=== PATIENT | male | born 1945 | race Caucasian/White ===

== ENCOUNTER 2018-03-15 08:42 | Outpatient (CLI) | payer MEDICARE, BC ==
--- NOTE | 2018-03-15 14:19 | RAD ---
CHEST TWO VIEWS: History: Pre op. Comparison: 03-30-17 FINDINGS: Loop recording device is present. No focal airspace consolidation, pneumothorax, or effusion. There a re some calcified granulomas in the lung. No acute osseous abnormality. IMPRESSION: No acute intrathoracic abnormality. POS: [facility]
[2018-03-15 14:26] LABS: #Eosinphils 0.2 thou/uL (0.0-0.7); #Lymphocytes 1.7 thou/uL (1.20-3.40); #Monocytes 0.6 thou/uL (0.11-0.59); #Neutrophils 5.4 thou/uL (1.40-6.50); %Basophils 0.3 % (0.0-1.0); %Eosinophils 2.8 % (0.0-10.0); %Lymphocytes 21.9 % (21.0-51.0); %Monocytes 7.4 % (0.0-10.0); %Neutrophils 67.6 % (42.0-75.0); Hemoglobin 13.2 g/dL (14.0-18.0); Mean Corpuscular HGB CONC 31.8 g/dL (32.0-36.0); Mean Corpuscular Hemoglobin 27.5 pg (27.0-31.0); Mean Corpuscular Volume 86.5 fl (80.0-94.0); Platelet Count 338 thou/uL (130-400); RBC Distribution Width 14.1 % (11.5-14.5); Red Blood Cell (RBC) Count 4.81 mill/uL (4.70-6.10); White Blood Cell (WBC) Count 7.9 thou/uL (4.8-10.8)
[2018-03-15 14:33] LABS: INR-International Normal Ratio 1.1; Prothrombin Time 14.3 SEC (12.0-14.7)
[2018-03-15 14:36] LABS: Bilirubin Negative (Negative); Blood, Urine Negative (Negative); Clarity CLEAR (Clear); Glucose, Urine (Dipstick) Negative (Negative); Leukocyte Negative (Negative); Nitrite Negative (Negative); Protein, Urine (Dipstick) Negative (Neg-Trace); Specific Gravity, Urine 1.012 (1.002-1.036); Urobilinogen 0.2 mg/dL (0.2-1.0); pH, Urine 5.5 (5.0-9.0)
[2018-03-15 14:43] LABS: Bacteria/HPF None Seen HPF (None Seen); Hyaline Casts/LPF 0-3 HYALINE CAST LPF (0-3 Hyaline); Pathc Cast-AUWi Flag 0.14 (0-2.49); RBC/HPF 0-3 HPF (0-3); Squamous Epithelial None Seen HPF (0-3); WBC/HPF 0-3 HPF (0-3)
[2018-03-15 14:49] LABS: Anion Gap 14 mmol/L (10-20); BUN (Urea Nitrogen) 8 mg/dL (8.4-25.7); Calc. Creatinine Clearance 0 mL/min (70-130); Calcium 9.5 mg/dL (7.8-10.44); Carbon Dioxide 28 mmol/L (23-31); Chloride 101 mmol/L (98-107); Estimated GFR-MDRD 69; Glucose 88 mg/dL (80-115); Potassium 4.5 mmol/L (3.5-5.1); Sodium 138 mmol/L (136-145)
== END 2018-03-15 08:43 | disposition home or self-care (01) ==
LOC: LABBT 08:42
PROVIDERS: ATTEND Orthopaedic Surgery
DX: Z01.818 Encounter for other preprocedural examination (principal); M17.12 Unilateral primary osteoarthritis, left knee
CPT/HCPCS: 71046; 80048; 81001; 85025; 85610; 86850; 86900; 86901; 87081

== ENCOUNTER 2018-03-22 06:41 | Day surgery (SDC) | payer MEDICARE, BC ==
[2018-03-15 08:57] VITALS: BMI 29.1
[2018-03-22] MEDS ORDERED: Vancomycin HCl 1.5 GM in Sodium Chloride 0.9% 250 ML 300 ML IVPB SCH (07:15)
[2018-03-22] MEDS ORDERED: CEFAZOLIN/Water 2 GM/20 ML SYRINGE ONE (07:28)
[2018-03-22] MEDS ORDERED: Fentanyl 100 MCG/2 ML VIAL ONE ×4 (07:42→11:28)
[2018-03-22] MEDS ORDERED: Midazolam HCl 2 mg/2 ml Vial ONE ×2 (07:42→09:07)
[2018-03-22] MEDS ORDERED: Ondansetron HCl/PF 4 MG/2 ML Vial IVP PRN ×3 (08:46→10:11)
[2018-03-22] MEDS ORDERED: diphenhydrAMINE 25 MG CAP PO PRN (08:46)
[2018-03-22] MEDS ORDERED: Promethazine HCl 25 MG/ML VIAL IM PRN ×3 (08:46→10:11)
[2018-03-22] MEDS ORDERED: Zolpidem Tartrate 5 MG TAB PO PRN ×2 (08:46→08:48)
[2018-03-22] MEDS ORDERED: Acetaminophen 325 MG TAB PO PRN (08:46)
[2018-03-22] MEDS ORDERED: traMADol HCl 50 MG TAB PO PRN ×3 (08:46→08:48)
[2018-03-22] MEDS ORDERED: HYDROcodone/Acetaminophen 10/325 mg Tablet PO PRN ×4 (08:46→08:48)
[2018-03-22] MEDS ORDERED: [UNRECOGNIZED DRUG - OTHER] PO PRN (08:47)
[2018-03-22] MEDS ORDERED: Bupivacaine 0.5% 50 ML in Sodium Chloride 0.9% 50 ML NERVE BLCK SCH (08:48)
[2018-03-22] MEDS ORDERED: Fentanyl 100 MCG/2 ML VIAL IV PRN (08:49)
[2018-03-22] MEDS ORDERED: Non-Formulary Item 1 EACH (Buprenorphine [Butrans] 1 PATCH) TD SCH (09:00)
[2018-03-22] MEDS ORDERED: Tranexamic Acid 1,000 MG in Sodium Chloride 0.9% 100 ML IVPB SCH (09:00)
[2018-03-22] MEDS ORDERED: Promethazine HCl 25 MG/ML VIAL SLOW IVP PRN (10:11)
[2018-03-22] MEDS ORDERED: Ketorolac Tromethamine 30 MG/ML VIAL ONE (11:38)
--- NOTE | 2018-03-22 11:49 | OP ---
PREOPERATIVE DIAGNOSIS: Degenerative joint disease, left knee. POSTOPERATIVE DIAGNOSIS: Degenerative joint disease, left knee. SURGEON: Shane Mays M.D. DETAIL MAKER AND FITTER: Wilmar Lujan PA-C. BLOOD LOSS: Minimal. SPECIMENS: None. DRAINS: None. COMPLICATIONS: None. TOURNIQUET TIME: 49 minutes. PROCEDURE: Left total knee arthroplasty. IMPLANTS USED: Shelly Triathlon 6 femur, 5 tibia, 9 mm CSX3 polyethylene, and A35 patella. PROCEDURE IN DETAIL: After informed consent was obtained in the preoperative holding area. The bhavna ent was taken to the operative suite where general anesthesia was induced. Once adequate level of ge neral anesthesia was obtained, the patient was positioned and a well-padded tourniquet was placed sonja und the ?? proximal thigh. The ?? lower extremity was then prepped and draped in the usual sterile f ashion. Prior to exsanguination, a time out was called and all members of the surgical team agreed u portia site, surgeon, and patient. The extremity was then exsanguinated and the tourniquet was raised. A midline longitudinal incision was then made directly over the patella extending two fingerbreadths above the superior pole of the patella and two fingerbreadths inferior to the inferior patellar pole of the patella. Deeper subcutaneous layers were dissected sharply and local bleeding was controlled with Bovie electrocautery. A quad tendon longitudinal split was then made sharply and a median para patellar arthrotomy was carried out both sharp and with Bovie electrocautery, carried down to one fin gerbreadth medial to the tibial tubercle. The knee was then placed into flexion and the patella was everted nicely, and a copious fat pad ectomy was performed allowing for greater exposure of the tibia . The computer-assisted distal femoral fiducial was then placed and pinned firmly, and the distal fe moral cutting guide was pinned firmly into place. The oscillating saw was then used to remove the ap propriate amount of bone. The 4-in-1 cutting block was then placed on the distal femur and the oscil lating saw was used to remove the appropriate amount of bone off of the anterior, posterior, and yasmine master cuts. After completion of bone cuts, the anterior cruciate ligament was resected sharply and the posterior cruciate ligament retractor was placed and the tibia was subluxed for better exposure. Pa rtial meniscectomies were carried out, and the tibial computer-assisted fiducial was pinned, and the cutting guide was placed. Oscillating saw was then used to remove the bone with Hohmann retractors u sed to take care and protect the collateral ligaments. After the tibial resection was performed, a l aminar sewer and cutter finger buff material was placed in between the freshened bone cuts. The knee placed at 90 degrees and fur ther bilateral meniscectomies were carried out, and the curved osteotome and curettage was used to re move any excess bone spurs in the posterior compartment. The trial femoral component, tibial basepla te were placed with the appropriate polyethylene trial insert with an appropriate polyethylene spacer and patellar button. The knee was taken through full range of motion with flexion and extension fro m 0-90 degrees and patellar broach squarely in the trochlea without any squinting or subluxation note d. The knee was also stable to varus and valgus stressing at 0, 15, 45, and 90 degrees of flexion. The drawer was negative. All trial components were then removed and the keel punch was used to provid e the appropriate defect in the tibia with a mallet. The freshened bone cuts were copiously irrigate d with pulsatile lavage of about 1-1/2 liters to remove all excess debris. The freshened bone cuts w ere then dried and with suction and lap sponge. The knee was placed in flexion and retractors were p laced to provide access to all bone cuts. Tobramycin impregnated methyl methacrylate cement was then placed on the freshened bone cuts and implants which were malleted firmly into place. Curettage and [place] elevators were used to remove any excess bone cement. The knee was placed into full extension and the patellar button was placed under compression, and the cement was allowed to cure. Once comp leted, the components were again taken through full range of motion and copious irrigation of the kne e was carried out with another liter of normal saline. All components were inspected fully with full range of motion and varus and valgus stressing. There was no laxity noted and full extension was obs erved clinically. Primary closure was accomplished with #2 interrupted Vicryl stitch of the arthroto my defect. This was oversewn with a #2 running Quill barbed stitch. The gravitational platelet syst em was then injected into the arthrotomy prior to closure. The subcutaneous layer was then closed wi th a running 0 barbed Monocryl stitch and skin closure accomplished with a running subcuticular 3-0 M onocryl barbed Quill stitch and augmented with cement on the skin. Tourniquet was lowered. Good spo ntaneous return of distal pulses was noted clinically and a sterile dressing was applied to the incis ion. The procedure was terminated without any complications. The patient was awakened in the operat emmanuel suite and the tourniquet was removed, and the patient was taken to the recovery room in stable co ndition.
[2018-03-22] MEDS ORDERED: Senokot 8.6 MG TAB PO PRN (12:37)
[2018-03-22] MEDS ORDERED: Chloraseptic Spray 180 ml Bottle PO PRN (12:37)
[2018-03-22] MEDS ORDERED: Milk Of Magnesia 30 ML UDCUP PO PRN (12:37)
[2018-03-22] MEDS ORDERED: Diabetic Tussin 200 MG/10 ML UDCUP PO PRN (12:37)
[2018-03-22] MEDS ORDERED: Loperamide HCl 2 MG CAP PO PRN (12:37)
[2018-03-22] MEDS ORDERED: Ondansetron ODT 4 MG TAB PO PRN (12:37)
[2018-03-22] MEDS ORDERED: hydrALAZINE 20 MG/ML VIAL SLOW IVP PRN (12:37)
[2018-03-22] MEDS ORDERED: Artificial Tears 18 DROP/0.9 ML EA EYE PRN (12:37)
[2018-03-22] MEDS ORDERED: Mag-Al 1200 mg/1200 mg/30 ML UDCUP PO PRN (12:37)
[2018-03-22] MEDS ORDERED: Eucerin (Mineral Oil/Petrolatum,White) 30 gm Jar TOP PRN (12:37)
--- NOTE | 2018-03-22 12:37 | RAD ---
LEFT KNEE TWO VIEWS: HISTORY: Total knee, postop. COMPARISON: None. FINDINGS: Satisfactory appearance of left post total knee arthroplasty and patellar resurfacing. Respective po stoperative gas and edema. IMPRESSION: Satisfactory postoperative appearance. POS: [facility]
[2018-03-22] MEDS: Levothyroxine Sodium 75 MCG TAB PO SCH (13:20)
[2018-03-22] MEDS: Ferrous Gluconate 324 MG TAB PO SCH ×2 (13:20→21:20)
[2018-03-22] MEDS: Multivitamin W/ Minerals 1 TAB PO SCH (13:21)
[2018-03-22] MEDS: Sodium Chloride 0.9% 1,000 ML IV SCH ×2 (13:21→19:33)
[2018-03-22] MEDS: Ketorolac Tromethamine 30 MG/ML VIAL IVP SCH ×3 (13:21→23:59)
[2018-03-22] MEDS: Senokot S 8.6-50 MG TAB PO SCH ×2 (13:21→21:20)
--- NOTE | 2018-03-22 13:34 | PDOC.PN ---
- Subjective Encounter Start Date: 03/22/18 Encounter Start Time: 13:30 -: old records requested/rev Patient seen and examined. No new complaints. No overnight events - Objective Resuscitation Status: Resuscitation Status FULL:Full Resuscitation MAR Reviewed: Yes Vital Signs & Weight: Weight Weight 215 lb Radiology Reviewed by me: Yes (knee xray) EKG Reviewed by me: Yes (nsr) Phys Exam - Physical Examination Constitutional: NAD HEENT: PERRLA, moist MMs, sclera anicteric Neck: no JVD, supple Respiratory: no wheezing, no rales, no rhonchi Cardiovascular: RRR, no significant murmur, no rub Gastrointestinal: soft, non-tender, no distention, positive bowel sounds Musculoskeletal: no edema, pulses present left knee with dressing, nerve block in place Neurological: non-focal, normal sensation, moves all 4 limbs Lymphatic: no nodes Psychiatric: normal affect, A&O x 3 Skin: no rash, normal turgor, cap refill <2 seconds Dx/Plan (1) Status post total left knee replacement Code(s): Z96.652 - PRESENCE OF LEFT ARTIFICIAL KNEE JOINT Status: Acute (2) Paroxysmal atrial fibrillation Code(s): I48.0 - PAROXYSMAL ATRIAL FIBRILLATION Status: Chronic (3) Thoracic ascending aortic aneurysm Status: Chronic (4) Osteoarthritis Code(s): M19.90 - UNSPECIFIED OSTEOARTHRITIS, UNSPECIFIED SITE Status: Chronic (5) Hiatal hernia Code(s): K44.9 - DIAPHRAGMATIC HERNIA WITHOUT OBSTRUCTION OR GANGRENE Status: Chronic (6) Asbestos exposure Code(s): Z77.090 - CONTACT WITH AND (SUSPECTED) EXPOSURE TO ASBESTOS Status: Chronic (7) BPH (benign prostatic hyperplasia) Code(s): N40.0 - BENIGN PROSTATIC HYPERPLASIA WITHOUT LOWER URINRY TRACT SYMP Status: Chronic (8) Chronic anticoagulation Code(s): Z79.01 - PRISON (CURRENT) USE OF ANTICOAGULANTS Status: Chronic (9) HTN (hypertension) Code(s): I10 - ESSENTIAL (PRIMARY) HYPERTENSION Status: Chronic (10) Hypothyroidism Code(s): E03.9 - HYPOTHYROIDISM, UNSPECIFIED Status: Chronic (11) Pulmonary nodules Status: Chronic - Plan cont current plan of care, plan discussed w/ family, PT/OT, DVT proph w/SCDs * code status discussed, pt is full code and his is MPOA * continue lovenox for DVT prophylaxis as per protocol * continue pepcid for GI prophylaxis * nerve bloc as per anesthesia * PT/OT as per [facility] protocol treatment * Home medication reconciled, [place] on discharge * medication reviewed as below * symptomatic treatment. * discussed plan with * old labs and record reviewed Review of Systems - Review of Systems Constitutional: negative: fever, chills, sweats, weakness, malaise, other Eyes: negative: Pain, Vision Change, Conjunctivae Inflammation, Eyelid Inflammation, Redness, Other ENT: negative: Ear Pain, Ear Discharge, Nose Pain, Nose Discharge, Nose Congestion, Mouth Pain, Mouth Swelling, Throat Pain, Throat Swelling, Other Respiratory: negative: Cough, Dry, Shortness of Breath, Hemoptysis, SOB with Excertion, Pleuritic Pain, Sputum, Wheezing Cardiovascular: negative: chest pain, palpitations, orthopnea, paroxysmal nocturnal dyspnea, edema, light headedness, other Gastrointestinal: negative: Nausea, Vomiting, Abdominal Pain, Diarrhea, Constipation, Melena, Hematochezia, Other Genitourinary: negative: Dysuria, Frequency, Incontinence, Hematuria, Retention , Other Musculoskeletal: negative: Neck Pain, Shoulder Pain, Arm Pain, Back Pain, Hand Pain, Leg Pain, Foot Pain, Other Skin: negative: Rash, Lesions, Anthony, Bruising, Other - Medications/Allergies Allergies/Adverse Reactions: Allergies Allergy/AdvReac Type Severity Reaction Status Date / Time No Known Allergies Allergy Verified 03/15/18 08:57 Medications: Current Medications Acetaminophen (Tylenol) 650 mg PO Q4H PRN PRN Reason: SOL/ T > 101F; Mild Pain (1-3) Hydrocodone Bitart/Acetaminophen ([place] 10/325) 1 tab PO Q4H PRN PRN Reason: Pain (1-3) Hydrocodone Bitart/Acetaminophen ([place] 10/325) 2 tab PO Q4H PRN PRN Reason: PAIN (4-6) Al Hydroxide/Mg Hydroxide (Maalox) 15 ml PO Q4H PRN PRN Reason: Heartburn or Indigestion Artificial Tears (Tears Naturale) 0 drop EA EYE PRN PRN PRN Reason: Dry Eyes Cefazolin Sodium (Ancef) 2 gm SLOW IVP Q8H [facility] Stop: 03/23/18 00:01 Cholecalciferol (Vitamin D3) 2,000 units PO DAILY [facility] Last Admin: 03/22/18 13:20 Dose: Not Given Diphenhydramine HCl (Benadryl) 25 mg PO Q6H PRN PRN Reason: Itching Duloxetine HCl (Cymbalta) 60 mg PO HS [facility] Enoxaparin Sodium (Lovenox) 40 mg SC 0900 [facility] Famotidine (Pepcid) 20 mg PO BID [facility] Fentanyl (Sublimaze) 50 mcg IV Q1H PRN PRN Reason: BREAKTHROUGH PAIN Last Admin: 03/22/18 13:07 Dose: 50 mcg Ferrous Gluconate (Fergon) 324 mg PO BID [facility] Last Admin: 03/22/18 13:20 Dose: Not Given Guaifenesin (Robitussin Sf) 200 mg PO Q4H PRN PRN Reason: Cough Hydralazine HCl (Apresoline) 10 mg SLOW IVP Q4H PRN PRN Reason: Systolic BP > 180 Bupivacaine HCl 50 ml/ Sodium (Chloride) 100 mls @ 0 mls/hr NERVE BLCK INF [facility] PRN Reason: As Directed Sodium Chloride (Normal Saline 0.9%) 1,000 mls @ 100 mls/hr IV .Q10H [facility] Last Admin: 03/22/18 13:21 Dose: Not Given Tranexamic Acid 1,000 mg/ (Sodium Chloride) 110 mls @ 200 mls/hr IVPB ONE [facility] Stop: 03/22/18 21:00 Iron/Minerals/Multivitamins (Theragran M) 1 tab PO DAILY [facility] Last Admin: 03/22/18 13:21 Dose: Not Given Ketorolac Tromethamine (Toradol) 15 mg IVP Q6HR [facility] Stop: 03/24/18 06:01 Last Admin: 03/22/18 13:21 Dose: Not Given Levothyroxine Sodium (Synthroid) 75 mcg PO QAM [facility] Last Admin: 03/22/18 13:20 Dose: Not Given Loperamide HCl (Imodium) 2 mg PO PRN PRN PRN Reason: Diarrhea/Loose Stools Losartan Potassium (Cozaar) 100 mg PO HS [facility] Magnesium Hydroxide (Milk Of Magnesium) 30 ml PO DAILYPRN PRN PRN Reason: Constipation Mineral Oil/White Petrolatum (Eucerin Cream) 0 gm TOP BIDPRN PRN PRN Reason: Dry Skin Ondansetron HCl (Zofran) 4 mg IVP Q6H PRN PRN Reason: Nausea/Vomiting Ondansetron HCl (Zofran Odt) 4 mg PO Q6H PRN PRN Reason: Nausea/Vomiting [Butrans] 1 Patch 0 each TOP Q7D [facility] Phenol (Chloraseptic [place] 180 Ml Bot) 0 ml PO PRN PRN PRN Reason: Sore Throat Promethazine HCl (Phenergan) 12.5 mg IM Q4H PRN PRN Reason: Nausea Senna (Senokot) 2 tab PO HSPRN PRN PRN Reason: Constipation Senna/Docusate Sodium (Senokot S) 2 tab PO BID [facility] Last Admin: 03/22/18 13:21 Dose: Not Given Sodium Chloride (Flush - Normal Saline) 10 ml IVF PRN PRN PRN Reason: Saline Flush Tamsulosin HCl (Flomax) 0.4 mg PO QPM [facility] Tramadol HCl (Ultram) 50 mg PO Q6H PRN PRN Reason: Mild Pain (1-3) Tramadol HCl (Ultram) 100 mg PO Q6H PRN PRN Reason: Moderate Pain 4-6 Zolpidem Tartrate (Ambien) 5 mg PO HSPRN PRN PRN Reason: Insomnia History of Present Illnes - History of Present Illness Reason for Visit: elective admission for left knee replacement History of Present Illness: admitted for left TKR pt failed conservative treatment No chest pain or palpitation - Past Medical History Cardiac: AFIB, HTN, Hyperlipidemia Gastrointestinal: GERD Musculoskeletal: Osteoarthritis Renal/: Benign prostatic enlarg. Endocrine: Hypothyroidism Dermatology: Basal cell - Past Surgical History Past Surgical History: Appendectomy, Arthroscopy, Cholecystectomy, Total Hip Replacement (right), Total Knee Replacement (left) - Past Family History Family History: None - Past Social History Smoke: No Alcohol: Rare Drugs: None Lives: With Family Domestic Violence: Negative
[2018-03-22] MEDS ORDERED: Metoprolol Tartrate 25 MG TAB PO SCH ×2 (15:00→21:00)
[2018-03-22] MEDS: CEFAZOLIN/Water 2 GM/20 ML SYRINGE SLOW IVP SCH (15:32)
[2018-03-22] MEDS ORDERED: Ropivacaine 0.5% HCl/PF (150 MG/30 ML VIAL) ONE (15:34)
[2018-03-22] MEDS ORDERED: Ropivacaine 0.2% HCl/PF (40 MG/20 ML VIAL) ONE (15:34)
[2018-03-22] MEDS ORDERED: PHENYLEPHRINE-NS 100 MCG/ML 10 ML SYRINGE ONE (15:51)
[2018-03-22] MEDS ORDERED: PROPOFOL 200 MG/20 ML VIAL ONE (15:51)
[2018-03-22] MEDS ORDERED: Lidocaine 1% PF 5 ML VIAL ONE (15:51)
[2018-03-22] MEDS ORDERED: DULoxetine 60 MG CAP PO SCH (21:00)
[2018-03-22] MEDS ORDERED: Tamsulosin HCl 0.4 MG CAP PO SCH (21:00)
[2018-03-22] MEDS ORDERED: Losartan 25 MG TAB PO SCH (21:00)
[2018-03-22] MEDS: Famotidine 20 MG TAB PO SCH (21:19)
[2018-03-23] MEDS: CEFAZOLIN/Water 2 GM/20 ML SYRINGE SLOW IVP SCH
[2018-03-23] MEDS: Sodium Chloride 0.9% 1,000 ML IV SCH (04:18)
[2018-03-23 05:35] LABS: Hemoglobin 11.6 g/dL (14.0-18.0); Mean Corpuscular HGB CONC 34.1 g/dL (32.0-36.0); Mean Corpuscular Hemoglobin 28.9 pg (27.0-31.0); Mean Corpuscular Volume 84.8 fl (80.0-94.0); Platelet Count 266 thou/uL (130-400); RBC Distribution Width 13.9 % (11.5-14.5); Red Blood Cell (RBC) Count 3.99 mill/uL (4.70-6.10)
[2018-03-23] MEDS: Ketorolac Tromethamine 30 MG/ML VIAL IVP SCH ×2 (06:04→12:56)
[2018-03-23] MEDS: Multivitamin W/ Minerals 1 TAB PO SCH (08:53)
[2018-03-23] MEDS: Senokot S 8.6-50 MG TAB PO SCH (08:53)
[2018-03-23] MEDS: Ferrous Gluconate 324 MG TAB PO SCH (08:53)
[2018-03-23] MEDS: Famotidine 20 MG TAB PO SCH (08:53)
[2018-03-23] MEDS: Levothyroxine Sodium 75 MCG TAB PO SCH (08:53)
[2018-03-23] MEDS ORDERED: Enoxaparin Sodium 40 MG/0.4 ML SYRINGE SC SCH (09:00)
[2018-03-23] MEDS ORDERED: Metoprolol Tartrate 50 MG TAB PO SCH (09:00)
--- NOTE | 2018-03-23 10:39 | PDOC.PN ---
- Subjective Encounter Start Date: 03/23/18 Encounter Start Time: 08:30 -: old records requested/rev pt has tachycardia, he is asymptomatic, he has loop recorder inserted and he has monitor at home, he wants to follow up with his cardiology after discharge, no chest pain, no dizziness - Objective Resuscitation Status: Resuscitation Status FULL:Full Resuscitation MAR Reviewed: Yes Vital Signs & Weight: Vital Signs (12 hours) Temp Pulse Resp BP Pulse Ox 03/23/18 08:51 98.1 F 88 20 98 03/23/18 07:55 98.1 F 88 20 122/73 98 03/23/18 04:00 98.9 F 110 H 18 118/72 96 03/23/18 00:00 98.5 F 108 H 18 141/88 H 97 Weight Weight 215 lb I&O: 03/22/18 03/23/18 03/24/18 06:59 06:59 06:59 Intake Total 2947.0 Output Total 1300 Balance 1647.0 Result Diagrams: 03/23/18 04:29 Phys Exam - Physical Examination Constitutional: NAD HEENT: PERRLA, moist MMs, sclera anicteric Neck: no JVD, supple Respiratory: no wheezing, no rales, no rhonchi Cardiovascular: RRR, no significant murmur, no rub tachycardia Gastrointestinal: soft, non-tender, no distention, positive bowel sounds Musculoskeletal: no edema, pulses present left knee with dressing, nerve block Neurological: non-focal, normal sensation, moves all 4 limbs Psychiatric: normal affect, A&O x 3 Skin: no rash, normal turgor Dx/Plan (1) Status post total left knee replacement Code(s): Z96.652 - PRESENCE OF LEFT ARTIFICIAL KNEE JOINT Status: Acute (2) Paroxysmal atrial fibrillation Code(s): I48.0 - PAROXYSMAL ATRIAL FIBRILLATION Status: Chronic (3) Thoracic ascending aortic aneurysm Status: Chronic (4) Osteoarthritis Code(s): M19.90 - UNSPECIFIED OSTEOARTHRITIS, UNSPECIFIED SITE Status: Chronic (5) Hiatal hernia Code(s): K44.9 - DIAPHRAGMATIC HERNIA WITHOUT OBSTRUCTION OR GANGRENE Status: Chronic (6) Asbestos exposure Code(s): Z77.090 - CONTACT WITH AND (SUSPECTED) EXPOSURE TO ASBESTOS Status: Chronic (7) BPH (benign prostatic hyperplasia) Code(s): N40.0 - BENIGN PROSTATIC HYPERPLASIA WITHOUT LOWER URINRY TRACT SYMP Status: Chronic (8) Chronic anticoagulation Code(s): Z79.01 - ENVIRONMENTAL SERVICES PROJECT MANAGER (CURRENT) USE OF ANTICOAGULANTS Status: Chronic (9) HTN (hypertension) Code(s): I10 - ESSENTIAL (PRIMARY) HYPERTENSION Status: Chronic (10) Hypothyroidism Code(s): E03.9 - HYPOTHYROIDISM, UNSPECIFIED Status: Chronic (11) Pulmonary nodules Status: Chronic - Plan cont current plan of care, plan discussed w/ family, PT/OT, social media marketing specialist, DVT proph w/SCDs * continue aspirin for DVT prophylaxis as per protocol * continue protonix for GI prophylaxis * nerve bloc as per anesthesia * PT/OT as per [facility] protocol treatment * Home medication reconciled * medication reviewed as below * symptomatic treatment. * start elliquis on discharge * increase metoprolol 50 mg po bid Review of Systems - Review of Systems ENT: negative: Ear Pain, Ear Discharge, Nose Pain, Nose Discharge, Nose Congestion, Mouth Pain, Mouth Swelling, Throat Pain, Throat Swelling, Other Respiratory: negative: Cough, Dry, Shortness of Breath, Hemoptysis, SOB with Excertion, Pleuritic Pain, Sputum, Wheezing Cardiovascular: negative: chest pain, palpitations, orthopnea, paroxysmal nocturnal dyspnea, edema, light headedness, other Gastrointestinal: negative: Nausea, Vomiting, Abdominal Pain, Diarrhea, Constipation, Melena, Hematochezia, Other Genitourinary: negative: Dysuria, Frequency, Incontinence, Hematuria, Retention , Other Musculoskeletal: negative: Neck Pain, Shoulder Pain, Arm Pain, Back Pain, Hand Pain, Leg Pain, Foot Pain, Other Skin: negative: Rash, Lesions, Anthony, Bruising, Other - Medications/Allergies Allergies/Adverse Reactions: Allergies Allergy/AdvReac Type Severity Reaction Status Date / Time No Known Allergies Allergy Verified 03/15/18 08:57 Medications: Current Medications Acetaminophen (Tylenol) 650 mg PO Q4H PRN PRN Reason: SOL/ T > 101F; Mild Pain (1-3) Hydrocodone Bitart/Acetaminophen ([place] 10/325) 1 tab PO Q4H PRN PRN Reason: Pain (1-3) Hydrocodone Bitart/Acetaminophen ([place] 10/325) 2 tab PO Q4H PRN PRN Reason: PAIN (4-6) Al Hydroxide/Mg Hydroxide (Maalox) 15 ml PO Q4H PRN PRN Reason: Heartburn or Indigestion Artificial Tears (Tears Naturale) 0 drop EA EYE PRN PRN PRN Reason: Dry Eyes Cholecalciferol (Vitamin D3) 2,000 units PO DAILY [facility] Last Admin: 03/23/18 08:52 Dose: 2,000 units Diphenhydramine HCl (Benadryl) 25 mg PO Q6H PRN PRN Reason: Itching Duloxetine HCl (Cymbalta) 60 mg PO HS [facility] Last Admin: 03/22/18 21:20 Dose: 60 mg Enoxaparin Sodium (Lovenox) 40 mg SC 0900 [facility] Last Admin: 03/23/18 08:54 Dose: 40 mg Famotidine (Pepcid) 20 mg PO BID [facility] Last Admin: 03/23/18 08:53 Dose: 20 mg Fentanyl (Sublimaze) 50 mcg IV Q1H PRN PRN Reason: BREAKTHROUGH PAIN Last Admin: 03/22/18 13:07 Dose: 50 mcg Ferrous Gluconate (Fergon) 324 mg PO BID [facility] Last Admin: 03/23/18 08:53 Dose: 324 mg Guaifenesin (Robitussin Sf) 200 mg PO Q4H PRN PRN Reason: Cough Hydralazine HCl (Apresoline) 10 mg SLOW IVP Q4H PRN PRN Reason: Systolic BP > 180 Bupivacaine HCl 50 ml/ Sodium (Chloride) 100 mls @ 0 mls/hr NERVE BLCK INF [facility] PRN Reason: As Directed Last Admin: 03/23/18 00:06 Dose: 100 mls Iron/Minerals/Multivitamins (Theragran M) 1 tab PO DAILY [facility] Last Admin: 03/23/18 08:53 Dose: 1 tab Ketorolac Tromethamine (Toradol) 15 mg IVP Q6HR [facility] Stop: 03/24/18 06:01 Last Admin: 03/23/18 06:04 Dose: 15 mg Levothyroxine Sodium (Synthroid) 75 mcg PO QAM [facility] Last Admin: 03/23/18 08:53 Dose: 75 mcg Loperamide HCl (Imodium) 2 mg PO PRN PRN PRN Reason: Diarrhea/Loose Stools Losartan Potassium (Cozaar) 100 mg PO [facility] Last Admin: 03/22/18 21:19 Dose: 100 mg Magnesium Hydroxide (Milk Of Magnesium) 30 ml PO DAILYPRN PRN PRN Reason: Constipation Metoprolol Tartrate (Lopressor) 50 mg PO BID [facility] Last Admin: 03/23/18 08:54 Dose: 50 mg Mineral Oil/White Petrolatum (Eucerin Cream) 0 gm TOP BIDPRN PRN PRN Reason: Dry Skin Ondansetron HCl (Zofran) 4 mg IVP Q6H PRN PRN Reason: Nausea/Vomiting Ondansetron HCl (Zofran Odt) 4 mg PO Q6H PRN PRN Reason: Nausea/Vomiting [Butrans] 1 Patch 0 each TOP Q7D [facility] Phenol (Chloraseptic [place] 180 Ml Bot) 0 ml PO PRN PRN PRN Reason: Sore Throat Promethazine HCl (Phenergan) 12.5 mg IM Q4H PRN PRN Reason: Nausea Senna (Senokot) 2 tab PO HSPRN PRN PRN Reason: Constipation Senna/Docusate Sodium (Senokot S) 2 tab PO BID [facility] Last Admin: 03/23/18 08:53 Dose: 2 tab Sodium Chloride (Flush - Normal Saline) 10 ml IVF PRN PRN PRN Reason: Saline Flush Tamsulosin HCl (Flomax) 0.4 mg PO QPM [facility] Last Admin: 03/22/18 21:20 Dose: 0.4 mg Tramadol HCl (Ultram) 50 mg PO Q6H PRN PRN Reason: Mild Pain (1-3) Tramadol HCl (Ultram) 100 mg PO Q6H PRN PRN Reason: Moderate Pain 4-6 Zolpidem Tartrate (Ambien) 5 mg PO HSPRN PRN PRN Reason: Insomnia
[2018-03-23] MEDS ORDERED: Ropivacaine 0.2% 550 ML 550 ML NERVE BLCK SCH (11:20)
[2018-03-23 13:15] VITALS: BP 152/77; TEMP 98.3
--- NOTE | 2018-03-23 14:48 | DIS ---
DATE OF ADMISSION: 03/22/2018 DATE OF DISCHARGE: 03/23/2018 PRIMARY CARE PHYSICIAN: Umer Pacheco M.D. DISCHARGE DISPOSITION: Home. PRIMARY DISCHARGE DIAGNOSIS: Status post left total knee replacement. SECONDARY DISCHARGE DIAGNOSES: Atrial tachycardia, paroxysmal atrial fibrillation, benign enlargemen t of prostate, chronic anticoagulation with Eliquis, hiatal hernia, hypertension, osteoarthritis, hyp othyroidism, thoracic ascending aortic aneurysm, history of pulmonary nodule. PRIMARY PROCEDURE/OPERATION: Left total knee replacement. RADIOLOGICAL INVESTIGATION: Knee x-ray. SIGNIFICANT LABS: Hemoglobin 11.6. DISCHARGE MEDICATIONS: Aspirin 325 mg p.o. b.i.d. p.r.n., Eliquis 5 mg p.o. b.i.d., Butrans 1 patch every 7 days, vitamin D3 2000 units p.o. daily, Cymbalta 60 mg p.o. at bedtime, [place] 10 one or two t ablets q.4 hourly p.r.n., Synthroid 75 mcg p.o. daily, losartan 100 mg p.o. at bedtime, metoprolol 50 mg p.o. b.i.d., Flomax 0.4 mg p.o. daily, tramadol 50 mg q.12 hourly p.r.n. CONTRAINDICATIONS: None. CODE STATUS: FULL CODE. INPATIENT CONSULTANTS: Dr. Shane Mays with Primary [facility] Team was consulted for medical comanageme nt. TEST RESULTS PENDING ON DISCHARGE: None. ALLERGIES: No known drug allergy. DISCHARGE PLAN: Post hospital, patient will follow up with Dr. Umer Pacheco in 1 week. The patient will follow up with Dr. Davon Lynn on 04/11/2018 at 10:00 a.m. Patient will follow up with Cardiohellen earl as instructed. HOSPITAL COURSE: A 72-year-old male who was electively admitted by Dr. Mays for left total knee re placement which was done on 03/22/2018 without any immediate complication. Postoperatively at [facility], [facility] Team was consulted for medical comanagement. Patient's medical problem remains sta ble. While in hospital, we noted that he was having tachycardia and that is why we started metoprolo l. The patient has history of atrial tachycardia and he has a loop recorder in place and that is why we instructed him to follow up with primary fire protection engineer at [facility]. Patient did very well with physical therapy and [facility] protocol treatment. Patient is planned for discharge today. The patient is seen and examined at bedside today. Please s ee my progress note from today for further details.
== END 2018-03-23 14:57 | disposition home or self-care (01) ==
LOC: SDC 06:41 → UNDOADMOB 12:07 → SJJU 12:07 → UNDODISOB 03-23 14:57 → SDC 03-23 14:57
PROVIDERS: ATTEND Orthopaedic Surgery
PROC: 0SRD069 Replacement of Left Knee Joint with Oxidized Zirconium on Polyethylene Synthetic Substitute, Cemented, Open Approach (ICD-10-PCS; principal; 2018-03-22)
PROC: 8E0YXBZ Computer Assisted Procedure of Lower Extremity (ICD-10-PCS; 2018-03-22)
DX: M17.0 Bilateral primary osteoarthritis of knee (principal); I48.0 Paroxysmal atrial fibrillation; N40.0 Benign prostatic hyperplasia without lower urinary tract symptoms; K44.9 Diaphragmatic hernia without obstruction or gangrene; I10 Essential (primary) hypertension; E03.9 Hypothyroidism, unspecified; I71.2 Thoracic aortic aneurysm, without rupture; G89.29 Other chronic pain; M54.9 Dorsalgia, unspecified; K21.9 Gastro-esophageal reflux disease without esophagitis; E78.5 Hyperlipidemia, unspecified; G43.909 Migraine, unspecified, not intractable, without status migrainosus; Z79.01 Long term (current) use of anticoagulants; Z79.899 Other long term (current) drug therapy; Z96.641 Presence of right artificial hip joint
CPT/HCPCS: 20985; 27447; 73560; 85027; 96374 ×2; 97116 ×2; 97139; 97150; 97530; A4306; C1713; C1776; G8978; G8979; 36415; J1650; J1885; J2001; J2250; J2704; J2795; J3010; J3370; J3490; J7050

== ENCOUNTER 2018-10-11 15:33 | Outpatient (CLI) | payer MEDICARE, BC ==
--- NOTE | 2018-10-11 17:22 | RAD ---
TWO VIEWS OF THE CHEST: 10/11/18 COMPARISON: 03/30/17. HISTORY: Dyspnea. FINDINGS: Two views of the chest shows a normal sized cardiomediastinal silhouette. There is no evidence of con solidation, mass, or pleural effusion. Degenerative changes are seen in the spine. A cardiac monitori ng device projects over the left chest wall. IMPRESSION: No evidence of acute cardiopulmonary disease. POS: [facility]
== END 2018-10-11 15:34 | disposition home or self-care (01) ==
LOC: RAD 15:33
PROVIDERS: ATTEND Internal Medicine Critical Care Medicine
DX: R06.00 Dyspnea, unspecified (principal)
CPT/HCPCS: 71046

== ENCOUNTER 2018-12-14 13:56 | Outpatient (CLI) | payer MEDICARE, BC | END 2018-12-14 13:57 | disposition home or self-care (01) | LOC: CP 13:56 | PROVIDERS: ATTEND Internal Medicine Critical Care Medicine | DX: J45.909 Unspecified asthma, uncomplicated (principal) | CPT/HCPCS: 94060; 94727; 94729 ==

== ENCOUNTER 2019-11-17 13:21 | Outpatient (CLI) | payer MEDICARE, BC ==
--- NOTE | 2019-11-17 15:20 | MRI ---
EXAM: MRI Lumbar Spine WO Con PROVIDED CLINICAL HISTORY: Lumbar radiculopathy COMPARISON: None FINDINGS: 5 lumbar vertebral bodies are assumed. Lumbar alignment appears normal. Vertebral body heights appear preserved. No focal concerning regional marrow signal abnormality is evident. The conus medullaris is normal in signal and terminates at an appropriate level. Right-sided iliopsoas muscular atrophy is demonstrated. The visualized extraspinal soft tissues appear otherwise unremarkable. At L1-2, there is no significant central canal or foraminal narrowing apparent. At L2-3, there is no significant central canal or foraminal narrowing apparent. At L3-4, there is a left paracentral disc extrusion with caudal migration of a possibly sequestered d isc fragment. This produces potential for mass effect upon the exiting left L3 nerve root. There is also a small disc extrusion with caudal migration in the midline producing no significant central can al stenosis. There is bilateral facet arthritis. There is a broad-based disc bulge. There is mild central canal stenosis. At L4-5, there is disc space height loss and a broad-based disc bulge with bilateral facet arthritis. There is no significant foraminal narrowing apparent. There is mild central canal stenosis. At L5-S1, there is a broad-based disc bulge and bilateral facet arthritis without significant central canal or foraminal narrowing apparent. IMPRESSION: Lumbar disc and facet degeneration with disc herniations at L3-4 as described.
== END 2019-11-17 13:22 | disposition home or self-care (01) ==
LOC: SCSMRI 13:21
PROVIDERS: ATTEND Anesthesiology
DX: M51.06 Intervertebral disc disorders with myelopathy, lumbar region (principal); M51.16 Intervertebral disc disorders with radiculopathy, lumbar region; M47.26 Other spondylosis with radiculopathy, lumbar region; M47.16 Other spondylosis with myelopathy, lumbar region
CPT/HCPCS: 72148

== ENCOUNTER 2020-07-22 08:58 | Outpatient (CLI) | payer MEDICARE, BC ==
--- NOTE | 2020-07-22 10:44 | MRI ---
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 Evaluate for recurrent mass. TECHNIQUE: Multiplanar multisequence MR images were obtained of the left thigh with and without contr ast utilizing 20 mL of MultiHance. A surface marker was placed at the resection site. Comparisons are made with a prior MRI of the left thigh with and without contrast dated April 25, 2020. FINDINGS: Underlying the surface marker are foci of susceptibility artifact likely related to metalli c debris at the resection site. There is no evidence to suggest recurrent mass within the resection cavity overlying the anterolateral mid left thigh. No enhancing abnormal mass is present within the a nterior compartment of the left leg. The visualized medial and posterior compartment of the left leg appear within normal limits. No definite enlarged lymph nodes are demonstrated. Visualized marrow signal intensity of the adjacent left femur is normal-appearing. IMPRESSION: No evidence to suggest recurrent malignancy within the surgical resection site of the ant erior left thigh. Transcribed Date/Time: 07/22/2020 10:54 AM
[2020-07-22] MEDS ORDERED: Magnevist 469MG/ML 20 ML VIAL ONE (15:31)
== END 2020-07-22 08:59 | disposition home or self-care (01) ==
LOC: BICMRI 08:58
PROVIDERS: ATTEND Orthopaedic Surgery
DX: C49.22 Malignant neoplasm of connective and soft tissue of left lower limb, including hip (principal)
CPT/HCPCS: 82565; A9579

== ENCOUNTER 2020-10-22 12:36 | Outpatient (CLI) | payer MEDICARE, BC ==
[2020-10-22] MEDS ORDERED: Iopamidol 370 76% 100 ML VIAL ONE (13:02)
[2020-10-22] MEDS ORDERED: Magnevist 469MG/ML 20 ML VIAL ONE (13:14)
--- NOTE | 2020-10-22 13:45 | CT ---
EXAM: CT of the chest with contrast HISTORY: Left thigh cancer. Evaluate for metastatic disease COMPARISON: 07/26/2020, 04/25/2020, 07/13/2016 TECHNIQUE: Multiple contiguous axial images were obtained in a CT the chest with contrast. Coronal an d sagittal reformats were performed. FINDINGS: HEART: Normal in size without focal cardiac abnormality MEDIASTINUM: No hilar or mediastinal lymphadenopathy. LUNGS: Calcified granulomas are seen in the left upper and lower lobes, as well as the right lower lo be. 2 adjacent stable nodular opacities are seen just above the right hemidiaphragm in the right lower lobe measuring up to 3 mm in size. No focal infiltrates, suspicious nodules, or masses. The pre viously seen right lower lobe peripheral opacities have resolved. PLEURAL SPACE: No pneumothorax or pleural effusion. Bilateral calcified pleural plaques are seen. CHEST WALL SOFT TISSUES: Unremarkable OSSEOUS STRUCTURES: Degenerative changes in the spine. VISUALIZED SUBDIAPHRAGMATIC STRUCTURES: Status post cholecystectomy. There is a calcified granuloma i n the spleen. IMPRESSION: 1. No evidence of intrathoracic metastatic disease. 2. 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
--- NOTE | 2020-10-22 15:44 | MRI ---
EXAM: MRI left thigh with and without IV contrast PROVIDED CLINICAL HISTORY: History of leiomyosarcoma COMPARISON: 07/22/2020 FINDINGS: Evaluation is limited due to focal signal loss on the postcontrast fat saturated coronal sequence and axial fluid sensitive sequence at the lateral aspect of the proximal left thigh, in the region of postoperative change as marked on the skin surface with a vitamin E tablet. Given this limitation, th ere is no evidence for masslike signal alteration. Regional marrow and muscular signal appear normal. There is no evidence for regional lymph node enlargement. The visualized courses of the regio nal major neurovascular structures appear unremarkable. IMPRESSION: No MR evidence for residual or recurrent disease.
== END 2020-10-22 12:37 | disposition home or self-care (01) ==
LOC: CT 12:36
PROVIDERS: ATTEND Orthopaedic Surgery
DX: C49.22 Malignant neoplasm of connective and soft tissue of left lower limb, including hip (principal); J92.9 Pleural plaque without asbestos
CPT/HCPCS: 71260; 82565; A9579; Q9967

== ENCOUNTER 2020-11-08 08:42 | Outpatient (CLI) | payer MEDICARE, BC ==
--- NOTE | 2020-11-08 10:11 | MRI ---
MRI thoracic spine noncontrast: 11/08/2020 HISTORY: 74-year-old male with intervertebral disc disorder with thoracic myelopathy COMPARISON: None FINDINGS: Vertebral body heights are maintained. Thoracic spinal cord is normal in size and signal. No syrinx. No cord compression. No major bone marrow signal abnormality. No central spinal canal stenosis at any level. Bilateral facet DJD at T1-2 with moderate bilateral neural foraminal stenosis (only imaged on sagittal sequences, not covered by axials). At T2-3 mild-moderate bilateral neural foraminal stenosis. Minimal broad-based central and bilateral lateral disc-osteophyte protrusion causes mild ce ntral spinal canal stenosis. No major pathology of perivertebral spaces. Incidental finding of bulky bridging flowing osteophytes protruding into the right anterior prevertebral space, consistent with DISH. IMPRESSION:: 1.) Facet osteoarthrosis at upper thoracic spine with bilateral neural foraminal stenosis. 2) no major pathology in the rest of the thoracic spine. 3) DISH (diffuse idiopathic skeletal hyperostosis).
--- NOTE | 2020-11-08 10:52 | MRI ---
MRI cervical spine noncontrast: 11/08/2020 HISTORY: 74-year-old male with cervicalgia and cervical myelopathy COMPARISON: None FINDINGS: Cervical spinal cord is normal in size and signal. No high-grade vertebral body collapse. Heterogeneo us bone marrow signal at endplates of C5-6 represent Modic type II changes, and signal changes at C6-7 and C7-T1 probably represent mild Modic type I changes. The sagittal sequences do not go for laterally enough to adequately evaluate degenerative changes of right facet joints. C1-2: Moderate hypertrophic degenerative changes at atlantoaxial odontoid complex. No high-grade cent ral spinal canal stenosis. Large right lateral osteophytes represent severe facet DJD at right atlantoaxial joint. C2-3: Disc space maintained. Low-grade bilateral facet DJD. No central or neural foraminal stenosis. C3-4: Disc space maintained. Shallow broad-based disc-osteophyte complex abuts ventral surface of spi nal cord without indentation. No central spinal canal stenosis. Small right and moderate left uncinate process osteophytes. Severe left facet DJD. Mild right and moderate left neural foraminal st enosis. C4-5: Disc space maintained. Severe left facet DJD causes mild grade 1 anterolisthesis of C4 on C5. B road-based disc protrusion. No central spinal canal stenosis. Small right and small to moderate left uncinate process osteophytes. Moderate right and severe left neural foraminal stenosis. C5-6: Moderate left facet DJD. Moderate-severe disc space narrowing with mild endplate irregularity. Broad-based disc-osteophyte complex. Mild ligamentum flavum thickening. Mild central spinal canal stenosis. Moderate size bilateral uncinate process osteophytes. Severe right and mild left neural for aminal stenosis. C5-6: Moderate disc space narrowing. Broad-based disc protrusion encroaches upon spinal canal. Ligame ntum flavum thickening. Moderate central spinal canal stenosis. Small to moderate bilateral uncinate process osteophytes. Slight retrolisthesis of C6 on C7. Moderate left facet DJD. Moderate to severe bilateral neural foraminal stenosis. C7-T1: Mild disc space narrowing. Moderate bilateral facet DJD. No central spinal canal stenosis. Mil d to moderate right, and moderate to severe left, neural foraminal stenosis. IMPRESSION: 1.) Moderate cervical spondylosis with multilevel high-grade facet osteoarthrosis (especially on the left), and multilevel mild and moderate degenerative disc disease (worst at C5-6 and C6-7). 2) multilevel high-grade neural foraminal stenosis. 3) moderate central spinal canal stenosis at C6-7 4) no lauri cord compression or cord intramedullary signal abnormality at any level. 5) asymmetrically severe right-sided facet osteoarthrosis at the right atlantoaxial joint
== END 2020-11-08 08:43 | disposition home or self-care (01) ==
LOC: MRI 08:42
PROVIDERS: ATTEND Nurse Practitioner Family
DX: M51.06 Intervertebral disc disorders with myelopathy, lumbar region (principal); M47.812 Spondylosis without myelopathy or radiculopathy, cervical region; M48.02 Spinal stenosis, cervical region; M47.814 Spondylosis without myelopathy or radiculopathy, thoracic region; M48.04 Spinal stenosis, thoracic region; M48.14 Ankylosing hyperostosis [Forestier], thoracic region
CPT/HCPCS: 72141; 72146

== ENCOUNTER 2021-01-21 07:58 | Outpatient (CLI) | payer MEDICARE, BC ==
--- NOTE | 2021-01-21 09:17 | CT ---
Chest CT with IV contrast: 01/21/2021 COMPARISON: 10/22/2020 and 04/25/2020 HISTORY: Evaluate for metastatic disease, history of right thigh tumor TECHNIQUE: Axial CT imaging at 5 mm intervals through the chest with IV contrast. Coronal and sagitta l reformatted imaging obtained FINDINGS: No axillary lymphadenopathy. Scattered subcentimeter mediastinal lymph nodes are noted, mos t numerous in the right paratracheal region, stable when compared to the most recent prior examination. Stable mildly prominent left hilar lymph node. Of note, these lymph nodes are more numer ous and prominent than on the 04/25/2020 examination. Midline sternotomy wires are noted. Coronary arterial calcification present. Cholecystectomy clips noted. Partially imaged liver unremarkable. Spleen, partially imaged pancreas, bilateral adrenal glands, and partially imaged bilateral kidneys unremarkable. No pleural, pericardial, or mediastinal fluid. Left upper lobe: There is a linear area of increased density abutting the apical pleura on the left m easuring 8 mm in craniocaudal dimension on coronal imaging with a linear configuration on the axial imaging, new when compared to be 10/22/2020 examination. Stable granulomatous change noted within the lingula. Left lower lobe: Stable areas of granulomatous calcification as well as mild pleural thickening and p leural calcification. Right upper lobe: No suspicious pulmonary parenchymal mass lesion/nodule. Right middle lobe: Unremarkable. Right lower lobe: Stable areas of mild pleural thickening and pleural calcification. Stable granuloma tous calcification. Review of the osseous structures demonstrates no worrisome lytic or blastic bone lesion. Multilevel a nterior osteophyte formation noted within the mid thoracic spine, primarily right-sided. IMPRESSION: There is a new linear area of pleural-based increased density in the left lung apex. The configuration of this finding suggest a focal area of volume loss or interval development of scar. As this is a new finding when compared to the prior examination, short-term follow-up CT is advised i n 3 months. In addition, there are numerous nonenlarged but prominent lymph nodes within the mediastinum and left hilum which are new when compared to the 04/25/2020 examination, similar when compared to 10/22/2020. This lymph node prominence is of uncertain significance and would also be better assessed on short-term follow-up CT in 3 months. Early metastatic disease cannot be excluded. CODE T
[2021-01-21] MEDS ORDERED: Iopamidol 370 76% 100 ML VIAL ONE (10:23)
[2021-01-21] MEDS ORDERED: Magnevist 469MG/ML 20 ML VIAL ONE (10:39)
--- NOTE | 2021-01-21 12:02 | MRI ---
MRI OF LEFT THIGH PERFORMED WITH AND WITHOUT CONTRAST ENHANCEMENT: HISTORY: Cutaneous leiomyosarcoma. COMPARISON: An 10/22/2020 MRI study. FINDINGS: A marker is seen at the area of the previous surgery which is along the anterolateral aspect of the u pper thigh. Marrow signal change within the femur is normal. At the level of the marker, there has been previous surgery. There is some susceptibility artifact i n this region, but no evidence of enhancement. A questionable focus of enhancement on the coronal se quence is just felt to be related to susceptibility as this area is completely normal on some of the sequences which are less prone to susceptibility. This was reviewed with Dr. Calle, who agrees. Underlying muscle is normal in appearance. IMPRESSION: No evidence of recurrent tumor. POS: OFF
== END 2021-01-21 07:59 | disposition home or self-care (01) ==
LOC: CT 07:58
DX: C49.22 Malignant neoplasm of connective and soft tissue of left lower limb, including hip (principal); R91.8 Other nonspecific abnormal finding of lung field
CPT/HCPCS: 71260; 82565; A9579; Q9967

== ENCOUNTER 2023-02-15 09:03 | Outpatient (CLI) | payer MEDICARE, BC ==
[2023-02-15 09:57] LABS: Hemoglobin 12.9 g/dL (13.5-17.5); Mean Corpuscular HGB CONC 31.9 g/dL (32.0-36.0); Mean Corpuscular Hemoglobin 27.7 pg (27.0-33.0); Mean Corpuscular Volume 87.1 fl (81.2-95.1); Platelet Count 225 10x3/uL (150-450); RBC Distribution Width 13.4 % (11.5-14.5); Red Blood Cell (RBC) Count 4.65 10x6/uL (4.32-5.72); White Blood Cell (WBC) Count 7.6 10x3/uL (3.5-10.5)
[2023-02-15 10:07] LABS: PTT 29.6 sec (22.0-33.0); Prothrombin Time 10.4 sec (9.5-12.1)
[2023-02-15 10:11] LABS: Anion Gap 13 mmol/L (10-20); BUN (Urea Nitrogen) 14 mg/dL (8.4-25.7); Calc. Creatinine Clearance 0 mL/min (70-130); Calcium 9.4 mg/dL (7.8-10.44); Carbon Dioxide 28 mmol/L (23-31); Chloride 104 mmol/L (98-107); Estimated GFR 76; Glucose 110 mg/dL (83-110); Potassium 4.5 mmol/L (3.5-5.1); Sodium 140 mmol/L (136-145)
== END 2023-02-15 09:04 | disposition home or self-care (01) ==
LOC: LABBT 09:03
PROVIDERS: ATTEND Surgery
DX: Z01.812 Encounter for preprocedural laboratory examination (principal); M51.16 Intervertebral disc disorders with radiculopathy, lumbar region; M48.061 Spinal stenosis, lumbar region without neurogenic claudication
CPT/HCPCS: 80048; 85027; 85610; 85730

== ENCOUNTER 2023-02-18 05:58 | Observation (INO) | payer MEDICARE, BC ==
[2023-02-17 09:16] VITALS: BMI 29.8
[2023-02-18] MEDS ORDERED: Vancomycin 1 GM VIAL ONE (06:27)
[2023-02-18] MEDS ORDERED: Thrombin 5000 UNITS/5 ML VIAL ONE (06:27)
[2023-02-18] MEDS ORDERED: Fentanyl 250 MCG/5 ML VIAL ONE (07:05)
[2023-02-18] MEDS ORDERED: Sodium Chloride 0.9% 100 ML ONE (07:13)
[2023-02-18] MEDS ORDERED: CEFAZOLIN 2 GM VIAL ONE (07:13)
[2023-02-18] MEDS ORDERED: Morphine 2 MG/ML VIAL SLOW IVP PRN (07:27)
[2023-02-18] MEDS ORDERED: Ondansetron PF 4 MG/2 ML Vial IVP PRN (07:27)
[2023-02-18] MEDS ORDERED: HYDROcodone/Acetaminophen 7.5/325 mg Tablet PO PRN (07:27)
[2023-02-18] MEDS ORDERED: Acetaminophen 325 MG TAB PO PRN (07:27)
[2023-02-18] MEDS ORDERED: traMADol HCl 50 MG TAB PO PRN (07:27)
[2023-02-18] MEDS ORDERED: diphenhydrAMINE 25 MG CAP PO PRN (07:27)
[2023-02-18] MEDS ORDERED: tiZANidine HCl 4 MG TAB PO PRN (07:30)
[2023-02-18] MEDS ORDERED: Docusate 100 MG CAP PO PRN (07:31)
[2023-02-18] MEDS ORDERED: Non-Formulary Item 1 EACH (Buprenorphine Hcl [Belbuca] 300 MCG Film) BC PRN (07:31)
[2023-02-18] MEDS ORDERED: Non-Formulary Item 1 EACH (Buprenorphine Hcl [Belbuca] 450 MCG Film) BC PRN (07:31)
[2023-02-18] MEDS ORDERED: NEOSTIGMINE 3 MG/3 ML SYR 3 MG/3 ML SYRINGE ONE (07:35)
[2023-02-18] MEDS ORDERED: Dexamethasone 20 MG/5 ML VIAL ONE (07:35)
[2023-02-18] MEDS ORDERED: Glycopyrrolate 0.2 MG/ML 5 ML SYRINGE ONE (07:35)
[2023-02-18] MEDS ORDERED: Lidocaine 1% PF 5 ML VIAL ONE (07:35)
[2023-02-18] MEDS ORDERED: Rocuronium Bromide 10 MG/ML (10ML VIAL) ONE (07:35)
[2023-02-18] MEDS ORDERED: PROPOFOL 200 MG/20 ML VIAL ONE (07:35)
[2023-02-18] MEDS ORDERED: Ondansetron PF 4 MG/2 ML Vial ONE (07:35)
[2023-02-18] MEDS ORDERED: HYDROmorphone 0.5 MG/0.5 ML SYRINGE ONE ×4 (09:54→11:00)
[2023-02-18] MEDS ORDERED: HYDROmorphone 2 MG/ML VIAL SLOW IVP PRN (10:00)
[2023-02-18] MEDS ORDERED: Promethazine HCl 25 MG/ML VIAL IM PRN (10:00)
[2023-02-18] MEDS ORDERED: Ondansetron HCl/PF 4 MG/2 ML Vial IVP PRN (10:00)
[2023-02-18] MEDS ORDERED: tiZANidine HCl 4 MG TAB ONE (10:06)
[2023-02-18] MEDS ORDERED: FENTANYL 50 MCG/ML 1 ML VIAL ONE ×5 (10:08→12:11)
[2023-02-18] MEDS ORDERED: Tamsulosin HCl 0.4 MG CAP ONE (10:08)
[2023-02-18] MEDS: DULoxetine 60 MG CAP PO SCH (15:08)
[2023-02-18] MEDS: Multivitamin W/ Minerals 1 TAB PO SCH (15:08)
[2023-02-18] MEDS: Sodium Chloride 0.9% 1,000 ML IV SCH ×2 (15:08→20:18)
[2023-02-18] MEDS: Gabapentin 300 MG CAP PO SCH ×3 (15:08→19:54)
[2023-02-18] MEDS: Atorvastatin Calcium 40 MG TAB PO SCH (15:08)
[2023-02-18] MEDS: CeleCOXIB 100 MG CAP PO SCH ×2 (15:08→19:54)
[2023-02-18] MEDS: Cholecalciferol 1,000 UNITS (25 MCG) TAB PO SCH (15:08)
[2023-02-18] MEDS: CEFAZOLIN 2 GM in Sodium Chloride 0.9% 100 ML IVPB SCH ×2 (15:15→23:27)
[2023-02-18] MEDS: Acetaminophen/Codeine 30-300mg Tablet PO PRN (15:21)
[2023-02-18] MEDS ORDERED: Diazepam 5 MG TAB PO PRN (15:39)
[2023-02-18] MEDS ORDERED: FENTANYL 50 MCG/ML 1 ML VIAL SLOW IVP PRN (16:17)
[2023-02-18] MEDS: HYDROcodone/Acetaminophen 7.5/325 mg Tablet PO PRN (19:55)
[2023-02-18] MEDS ORDERED: Tamsulosin HCl 0.4 MG CAP PO SCH (21:00)
[2023-02-18] MEDS ORDERED: rOPINIRole HCl 2 MG TAB PO SCH (21:00)
[2023-02-19] MEDS: HYDROcodone/Acetaminophen 7.5/325 mg Tablet PO PRN (05:00)
[2023-02-19] MEDS ORDERED: Levothyroxine Sodium 88 MCG TAB PO SCH (06:00)
[2023-02-19] MEDS ORDERED: Ferrous Sulfate 325 MG TAB PO SCH (08:00)
[2023-02-19] MEDS: Cholecalciferol 1,000 UNITS (25 MCG) TAB PO SCH (09:14)
[2023-02-19] MEDS: Atorvastatin Calcium 40 MG TAB PO SCH (09:14)
[2023-02-19] MEDS: DULoxetine 60 MG CAP PO SCH (09:14)
[2023-02-19] MEDS: Multivitamin W/ Minerals 1 TAB PO SCH (09:14)
[2023-02-19] MEDS: Gabapentin 300 MG CAP PO SCH (09:14)
[2023-02-19] MEDS: CeleCOXIB 100 MG CAP PO SCH (09:14)
[2023-02-19] MEDS: Sodium Chloride 0.9% 1,000 ML IV SCH (09:16)
[2023-02-19] MEDS: Acetaminophen/Codeine 30-300mg Tablet PO PRN (09:19)
[2023-02-19 10:41] VITALS: BP 178/81; TEMP 97.9
== END 2023-02-19 11:29 | disposition home or self-care (01) ==
LOC: SDC 05:58 → SURG A 07:27
PROVIDERS: ADMIT Surgery; ATTEND Surgery
PROC: 01NB0ZZ Release Lumbar Nerve, Open Approach (ICD-10-PCS; principal; 2023-02-18)
PROC: 0SB20ZZ Excision of Lumbar Vertebral Disc, Open Approach (ICD-10-PCS; 2023-02-18)
DX: M48.062 Spinal stenosis, lumbar region with neurogenic claudication (principal); M51.16 Intervertebral disc disorders with radiculopathy, lumbar region; Z95.1 Presence of aortocoronary bypass graft; Z95.5 Presence of coronary angioplasty implant and graft; Z79.1 Long term (current) use of non-steroidal anti-inflammatories (NSAID); Z79.82 Long term (current) use of aspirin; Z79.890 Hormone replacement therapy; Z79.899 Other long term (current) drug therapy
CPT/HCPCS: 63047; 63048; 96374; G0378 ×2; J3010; J1100; J1170; J2405; J2704; J3370; J3490

== ENCOUNTER 2023-12-10 10:33 | Day surgery (SDC) | payer MEDICARE ==
[2023-12-09 12:36] VITALS: BMI 30.4
[2023-12-10] MEDS ORDERED: Vancomycin (BATCH) 1.5 GM/300 ML BAG ONE (11:45)
[2023-12-10] MEDS ORDERED: Gentamicin 80 MG/2 ML VIAL ONE (12:07)
[2023-12-10] MEDS ORDERED: CEFAZOLIN 2 GM VIAL ONE (12:08)
[2023-12-10] MEDS ORDERED: Iopamidol 370 76% 100 ML VIAL ONE (12:19)
[2023-12-10] MEDS ORDERED: Dexmedetomidine 200 MCG/2 ML VIAL ONE (12:29)
[2023-12-10] MEDS ORDERED: Glycopyrrolate 0.2 MG/ML 5 ML SYRINGE ONE (13:01)
[2023-12-10] MEDS ORDERED: fentaNYL 50 mcg/mL 1 mL Vial ONE ×3 (13:33→14:25)
== END 2023-12-10 19:17 | disposition home or self-care (01) ==
LOC: SDC 10:33
PROVIDERS: ATTEND Internal Medicine Cardiovascular Disease
PROC: 0JH608Z Insertion of Defibrillator Generator into Chest Subcutaneous Tissue and Fascia, Open Approach (ICD-10-PCS; principal; 2023-12-10)
PROC: 02H63KZ Insertion of Defibrillator Lead into Right Atrium, Percutaneous Approach (ICD-10-PCS; 2023-12-10)
PROC: 02HK3KZ Insertion of Defibrillator Lead into Right Ventricle, Percutaneous Approach (ICD-10-PCS; 2023-12-10)
DX: I44.2 Atrioventricular block, complete (principal)
CPT/HCPCS: 33249; 71045; 93005; C1769; C1894; J3010; J3370; 33208; 93010; C1785; C1898; J1580; Q9967

== ENCOUNTER 2024-01-28 09:14 | Outpatient (CLI) | payer MEDICARE ==
[2024-01-28 10:11] LABS: Hematocrit 38.9 % (38.8-50.0); Hemoglobin 13.1 g/dL (13.5-17.5); Mean Corpuscular HGB CONC 33.7 g/dL (32.0-36.0); Mean Corpuscular Hemoglobin 29.6 pg (27.0-33.0); Mean Corpuscular Volume 87.8 fl (81.2-95.1); Mean Platelet Volume 9.1 fl (7.4-10.4); Platelet Count 268 10x3/uL (150-450); RBC Distribution Width 12.5 % (11.5-14.5); Red Blood Cell (RBC) Count 4.43 10x6/uL (4.32-5.72); White Blood Cell (WBC) Count 7.3 10x3/uL (3.5-10.5)
[2024-01-28 10:24] LABS: Prothrombin Time 10.8 sec (9.5-12.1)
[2024-01-28 10:26] LABS: Anion Gap 11 mmol/L (10-20); BUN (Urea Nitrogen) 10 mg/dL (8.4-25.7); Calc. Creatinine Clearance 0 mL/min (70-130); Calcium 9.4 mg/dL (7.8-10.44); Carbon Dioxide 28 mmol/L (23-31); Chloride 106 mmol/L (98-107); Estimated GFR 74; Glucose 96 mg/dL (83-110); Potassium 4.4 mmol/L (3.5-5.1); Sodium 141 mmol/L (136-145)
== END 2024-01-28 09:15 | disposition home or self-care (01) ==
LOC: LABBT 09:14
PROVIDERS: ATTEND Internal Medicine Cardiovascular Disease
DX: Z01.812 Encounter for preprocedural laboratory examination (principal); I48.0 Paroxysmal atrial fibrillation; R29.6 Repeated falls

== ENCOUNTER 2024-02-04 05:58 | Day surgery (SDC) | payer MEDICARE ==
[2024-01-28 09:06] VITALS: BMI 30.6
[2024-02-04] MEDS ORDERED: PROPOFOL 200 MG/20 ML VIAL ONE (07:46)
== END 2024-02-04 08:27 | disposition home or self-care (01) ==
LOC: SDC 05:58
PROVIDERS: ATTEND Internal Medicine Cardiovascular Disease
PROC: 5A2204Z Restoration of Cardiac Rhythm, Single (ICD-10-PCS; principal; 2024-02-04)
DX: I48.19 Other persistent atrial fibrillation (principal)
CPT/HCPCS: 92960; 93005; 93010